=== PATIENT | male | born 1970 | race Hispanic/Latino ===

== ENCOUNTER 2017-04-09 11:17 | Emergency (ER) | payer OTHER, BC ==
--- NOTE | 2017-04-09 11:24 | ED PDOC ---
Arrival/HPI - General Time Seen by Provider: 04/09/17 11:20 Historian: Patient - History of Present Illness Narrative History of Present Illness (Text): 04/09/17 11:20 46 y/o male, [employer], no pmh, nkda, c/o lt. ankle/foot pain s/p inversion injury x 2 hours. Pt. was walking, twisted the lt. foot and ankle while accidentally twisted on a pothole, no calf or knee pain, no direct fall or trauma, no numbness or tingling, no other medical or psychological complaints. Past Medical History - Provider Review Nursing Documentation Reviewed: Yes Family/Social History - Physician Review Nursing Documentation Reviewed: Yes Family/Social History: Unknown Family HX Allergies/Home Meds Allergies/Adverse Reactions: Allergies No Known Allergies Allergy (Verified 04/09/17 11:21) Review of Systems - Review of Systems Constitutional: absent: Fatigue, Fevers Eyes: absent: Vision Changes ENT: absent: Hearing Changes Respiratory: absent: SOB, Cough Cardiovascular: absent: Chest Pain Gastrointestinal: absent: Abdominal Pain, Nausea, Vomiting Musculoskeletal: Arthralgias. absent: Back Pain, Neck Pain, Joint Swelling, Myalgias Neurological: absent: Headache, Dizziness, Focal Weakness, Gait Changes Physical Exam Vital Signs Temp Pulse Resp BP Pulse Ox 04/09/17 12:00 98.6 F 86 18 135/81 97 04/09/17 11:22 98.6 F 88 16 136/84 99 - Systems Exam Head: Present: Atraumatic, Normocephalic Pupils: Present: PERRL Extroacular Muscles: Present: EOMI Conjunctiva: Present: Normal Mouth: Present: Moist Mucous Membranes Neck: Present: Normal Range of Motion Respiratory/Chest: Present: Clear to Auscultation, Good Air Exchange. No: Respiratory Distress, Accessory Muscle Use Cardiovascular: Present: Regular Rate and Rhythm, Normal S1, S2. No: Murmurs Abdomen: Present: Normal Bowel Sounds. No: Tenderness, Distention, Peritoneal Signs Back: Present: Normal Inspection Upper Extremity: Present: Normal Inspection. No: Cyanosis, Edema Lower Extremity: Present: Normal Inspection, Other (Lt. ankle/foot: +ttp on the lateral base 5th metarsal region and lateral malleolus with no swelling, negative pilo and willett signs, FROM without limitation, sensation intact, motor 5/5, +DPPT pulses, capillary refill< 2 seconds, neurovascular intact. ). No: Edema Neurological: Present: GCS=15, CN II-XII Intact, Speech Normal Skin: Present: Warm, Dry, Normal Color. No: Rashes Psychiatric: Present: Alert, Oriented x 3, Normal Insight, Normal Concentration Medical Decision Making ED Course and Treatment: 04/09/17 11:22 -toradol IM -Xray -posterior splint applied with neurovascular intact, crutches trained -Discharge home with naproxen, crutches, posterior splint, elevation, ice compression, non-weight bearing, follow up with your own pmd and orthopedic within 3 days, return to the ER for any new or worsening signs or symptoms. 04/09/17 11:53 -xrays show no fracture or dislocation - RAD Interpretation Radiology Orders: 04/09/17 11:26 ANKLE LEFT 3 VIEWS ROUTINE [RAD] Stat FOOT LEFT 3 VIEWS ROUTINE [RAD] Stat normal left foot and lt. ankle radiographs. Belt Line Feeder: Radiologist - Medication Orders Current Medication Orders: Discontinued Medications Ketorolac Tromethamine (Toradol) 60 mg IM STAT STA Stop: 04/09/17 11:27 Last Admin: 04/09/17 11:32 Dose: 60 mg Ketorolac Tromethamine (Toradol) Confirm Administered Dose 60 mg .ROUTE .STK- MED ONE Stop: 04/09/17 11:31 Last Admin: 04/09/17 11:33 Dose: - PA / MOLECULAR SPECTROSCOPIST / Resident Statement / has reviewed & agrees with the documentation as recorded. Disposition/Present on Arrival - Present on Arrival Any Indicators Present on Arrival: No History of DVT/PE: No History of Uncontrolled Diabetes: No Urinary Catheter: No History of Decub. Ulcer: No - Disposition Have Diagnosis and Disposition been Completed?: Yes Diagnosis: Foot injury, Ankle injury, Arthralgia Disposition: HOME/ ROUTINE Disposition Time: 11:23 Patient Plan: Discharge Condition: GOOD Additional Instructions: Discharge home with naproxen, crutches, posterior splint, elevation, ice compression, non-weight bearing, follow up with your own pmd and orthopedic within 3 days, return to the ER for any new or worsening signs or symptoms. Prescriptions: Naproxen 500 mg PO BID PRN #[id number] tab PRN Reason: Other Referrals: Catalino Barker III, MD [Medical Doctor] - Follow up with primary [facility] [place] [Outside] - Follow up with primary Forms: WORK NOTE
[2017-04-09 11:27] VITALS: TEMP 98.6; BMI 32.1
[2017-04-09 12:14] VITALS: BP 135/81; PULSE 86; RESP 18; O2SAT 97
--- NOTE | 2017-04-09 13:09 | RAD ---
PROCEDURE: Left Foot Radiographs. HISTORY: inversion injury and pain COMPARISON: None. FINDINGS: BONES: Normal. No fracture. JOINTS: Normal. SOFT TISSUES: Normal. OTHER FINDINGS: None. IMPRESSION: Normal left foot radiographs.
--- NOTE | 2017-04-09 13:11 | RAD ---
PROCEDURE: Left Ankle Radiographs. HISTORY: inversion injury and pain COMPARISON: None FINDINGS: BONES: Normal. No fracture. JOINTS: Normal. No osteoarthritis. Ankle mortise maintained. Talar dome intact SOFT TISSUES: Normal. OTHER FINDINGS: None. IMPRESSION: Normal left ankle radiographs.
== END 2017-04-09 12:10 | disposition home or self-care (01) ==
LOC: ED 11:17
DX: S99.912A Unspecified injury of left ankle, initial encounter (principal); X50.0XXA Overexertion from strenuous movement or load, initial encounter; Y93.01 Activity, walking, marching and hiking; Y92.89 Other specified places as the place of occurrence of the external cause
CPT/HCPCS: 73610; 73630; 96372; 99284; J1885